=== PATIENT | female | born 1950 | race Caucasian/White ===

== ENCOUNTER → 2017-11-15 | Outpatient (CLI) | payer OTHER ==
[~2017-11-15] MED LIST: CHOL10002 PO; ESOM20; ESOM20 PO; HYDACE5 PO; LISHYD2012 PO; LOSA50; METF500 PO; METO100ER; METO100ER PO; METO50ER PO; MULVITMIND PO; OMEP20ER PO; PRED20 PO; SUMA25
== END | disposition home or self-care (01) ==
LOC: LAB EV 12:10 → LAB SHORT 12:10
DX: N39.0 Urinary tract infection, site not specified (principal)
CPT/HCPCS: 87077; 87086; 87186

== ENCOUNTER 2018-07-27 12:38 | Day surgery (SDC) | payer OTHER ==
[~2018-07-27] VITALS: Ht 157.5 cm; Wt 74.2 kg
[~2018-07-27 12:38] MED LIST changes: +B Complex #11 EACH PO; -OMEP20ER PO; +OMEPRAZOLE MAGN20 MG PO; +Toprol Xl25 MG PO
--- NOTE | 2018-07-27 15:20 | NUR ---
07/27/18 1520 Florinda Najera D 1 IV MISS IN RH BY BERHANE VEIN BLEW 1 GOOD IV IN RAC BY B[facility] PT TOW
== END 2018-07-27 17:13 | disposition home or self-care (01) ==
LOC: ORSCSDS 12:38
PROVIDERS: Student in an Organized Health Care Education/Training Program
PROC: 0DB68ZX Excision of Stomach, Via Natural or Artificial Opening Endoscopic, Diagnostic (ICD-10-PCS; principal; 2018-07-27 14:15)
PROC: 0DB58ZX Excision of Esophagus, Via Natural or Artificial Opening Endoscopic, Diagnostic (ICD-10-PCS; principal; 2018-07-27 14:15)
DX: K22.70 Barrett's esophagus without dysplasia (principal); K31.7 Polyp of stomach and duodenum; K22.2 Esophageal obstruction; K44.9 Diaphragmatic hernia without obstruction or gangrene; I10 Essential (primary) hypertension; K21.9 Gastro-esophageal reflux disease without esophagitis; E03.9 Hypothyroidism, unspecified; J45.909 Unspecified asthma, uncomplicated; Z87.891 Personal history of nicotine dependence; Z79.899 Other long term (current) drug therapy
CPT/HCPCS: 88305; J2704; J7120

== ENCOUNTER 2018-12-25 05:48 | Day surgery (SDC) | payer OTHER ==
[~2018-12-25] VITALS: Ht 154.9 cm; Wt 74.6 kg
[~2018-12-25 05:48] MED LIST changes: +ADVIL PO; -CHOL10002 PO; +Mobic15 MG PO; +Sleep Aid25 M1 PO; +VITAMIN D35000 UNIT PO
--- NOTE | 2018-12-25 06:18 | NUR ---
Ambulatory in Day Surgery History, Chart, Medications and Allergies reviewed before start of procedure.Lungs clear T/O to Auscultation. Patient confirms NPO status and agrees with scheduled surgery.
--- NOTE | 2018-12-25 10:46 | NUR ---
Discharge instructions reviewed with patient. Patient verbalizes understanding. Copy given to patient to take home. PT DENIES NEED FOR PAIN MEDICATION. DENIES NAUSEA. HAS TOLERATED WATER AND CRACKERS SLOWLY. AT BEDSIDE. STATES SHE FEELS LIKE SHE HAS TO VOID, EXPLAINED SHE HAD [place] DURING SURGERY.
== END 2018-12-25 11:49 | disposition home or self-care (01) ==
LOC: ORSCMMR 05:48 → ORD 07:30 → ORSCMMR 11:49
PROVIDERS: Surgery
PROC: 0YU54JZ Supplement Right Inguinal Region with Synthetic Substitute, Percutaneous Endoscopic Approach (ICD-10-PCS; principal; 2018-12-25 07:30)
PROC: 8E0W4CZ Robotic Assisted Procedure of Trunk Region, Percutaneous Endoscopic Approach (ICD-10-PCS; principal; 2018-12-25 07:30)
DX: K40.90 Unilateral inguinal hernia, without obstruction or gangrene, not specified as recurrent (principal); I10 Essential (primary) hypertension; K21.9 Gastro-esophageal reflux disease without esophagitis; Z79.899 Other long term (current) drug therapy
CPT/HCPCS: 49650; S2900; A9270-GY; C1781; J0690; J2250; J2370; J2704; J3010; J7120

== ENCOUNTER 2019-03-30 06:39 | Day surgery (SDC) | payer OTHER ==
[~2019-03-30] VITALS: Ht 157.5 cm; Wt 75.5 kg
--- NOTE | 2019-03-30 07:25 | NUR ---
03/30/19 0725 Krystle Rudd 1 TRY HAND R BLEW 2 TRY HAND RIGHT BLEW
== END 2019-03-30 09:04 | disposition home or self-care (01) ==
LOC: ORSCSDS 06:39
PROVIDERS: Surgery
PROC: 0DJD8ZZ Inspection of Lower Intestinal Tract, Via Natural or Artificial Opening Endoscopic (ICD-10-PCS; principal; 2019-03-30 08:00)
DX: Z12.11 Encounter for screening for malignant neoplasm of colon (principal); K57.30 Diverticulosis of large intestine without perforation or abscess without bleeding; I10 Essential (primary) hypertension; J45.909 Unspecified asthma, uncomplicated; K22.70 Barrett's esophagus without dysplasia; E03.9 Hypothyroidism, unspecified; Z79.899 Other long term (current) drug therapy
CPT/HCPCS: J2405; J2704; J7120

== ENCOUNTER → 2020-03-10 | Outpatient (CLI) | payer OTHER ==
[~2020-03-10] MED LIST changes: +ASPI325 PO; +IBUP800 PO; -LISHYD2012 PO; +PROM25 PO; +ROXICODONE5 MG PO; +ZESTORETIC 20-1 EAC3 PO
== END ==
LOC: LAB SHORT 14:57 → PLD 14:57
DX: M1A.9XX1 Chronic gout, unspecified, with tophus (tophi) (principal)
CPT/HCPCS: 88305; 89060

== ENCOUNTER → 2021-01-08 | Outpatient (CLI) | payer OTHER | END | disposition home or self-care (01) | LOC: LAB SHORT 09:50 | DX: M10.9 Gout, unspecified (principal) | CPT/HCPCS: 84550 ==

== ENCOUNTER 2022-12-24 07:30 | Day surgery (SDC) | payer OTHER ==
[2022-12-24] VITALS (15 sets, daily range): BP systolic 90–136; BP diastolic 46–95
[~2022-12-24] VITALS: Ht 154.9 cm; Wt 76.1 kg
[~2022-12-24 07:30] MED LIST changes: +ALLO100 PO; +DERMACINRX FOL1 EAC2 PO; +GABA100 PO; +IBUP400 PO; +MULTI-VITAMIN1 EAC2 PO
--- NOTE | 2022-12-24 08:23 | NUR ---
12/24/22 0823 Yoel Pearl HISTORY, CHART, MEDICATIONS AND ALLERGIES REVIEWED BEFORE START OF PROCEDURE. PATIENT CONFIRMS NPO STATUS AND AGREES WITH SCHEDULED PROCEDURE. 3-LEAD EKG REVIEWED WITH PHYSICIAN PRIOR TO START OF PROCEDURE. MONITOR INTACT WITH CONTINUOUS PULSE OXIMETRY,CAPNOGRAPHY, 3-LEAD EKG, INTERMITTENT BP. SUPPLEMENTAL O2 TO BE TITRATED THROUGHOUT PROCEDURE TO MAINTAIN O2 SATURATION ABOVE 90%. PATIENT DETERMINED TO BE ASA APPROPRIATE FOR PROPOFOL SEDATION PRIOR TO START OF PROCEDURE BY
--- NOTE | 2022-12-24 09:31 | NUR ---
Patient up to Ambulate independently. Gait steady. Discharge instructions reviewed with patient. Patient verbalizes understanding. Copy given to patient to take home. Discharged via wheelchair to private car for ride home WITH SPOUSE.
== END 2022-12-24 22:36 | disposition home or self-care (01) ==
LOC: ORSCMMR 07:30 → ORD 08:00 → ORSCMMR 22:36
PROVIDERS: Internal Medicine Gastroenterology
PROC: 0DB48ZX Excision of Esophagogastric Junction, Via Natural or Artificial Opening Endoscopic, Diagnostic (ICD-10-PCS; 2022-12-24)
PROC: 0DB68ZX Excision of Stomach, Via Natural or Artificial Opening Endoscopic, Diagnostic (ICD-10-PCS; principal; 2022-12-24 08:00)
PROC: 0DB58ZX Excision of Esophagus, Via Natural or Artificial Opening Endoscopic, Diagnostic (ICD-10-PCS; principal; 2022-12-24 08:00)
DX: K22.70 Barrett's esophagus without dysplasia (principal); K31.7 Polyp of stomach and duodenum; K44.9 Diaphragmatic hernia without obstruction or gangrene; I10 Essential (primary) hypertension; M10.9 Gout, unspecified; K21.9 Gastro-esophageal reflux disease without esophagitis; Z68.30 Body mass index [BMI] 30.0-30.9, adult; Z79.899 Other long term (current) drug therapy
CPT/HCPCS: 88305; 88342; A9270; J2704; J7120

== ENCOUNTER 2024-02-05 13:41 | Emergency (ER) | payer OTHER ==
[~2024-02-05] VITALS: Ht 154.9 cm; Wt 64.9 kg
[2024-02-05 15:18] LABS: Source, Urine Clean Catch
[2024-02-05 15:23] LABS: Appearance, Urine Clear (Clear); Bilirubin, Urine Neg (Neg); Blood, Urine Neg (Neg); Color, Urine Yellow (P-Yellow); Glucose Qualitative, Urine Neg (Neg); Ketones, Urine Neg (Neg); Leukocyte Esterase, Urine Neg (Neg); Nitrite, Urine Neg (Neg); Protein, Urine Neg (Neg); Specific Gravity, Urine 1.005 (1.003-1.022); Urobilinogen, Urine NORM (Normal)
[2024-02-05 15:33] LABS: BASOPHILS ABSOLUTE AUTO 0.08 K/mm3 (0.00-0.23); BASOPHILS PERCENT AUTO 1 % (0-2); EOSINOPHILS ABSOLUTE AUTO 0.12 K/mm3 (0.00-0.68); EOSINOPHILS PERCENT AUTO 1 % (0-6); Hematocrit 42.8 % (33.0-51.0); Hemoglobin 15.1 g/dL (11.5-16.0); IMMATURE GRAN ABSOLUTE AUTO 0.03 K/mm3 (0.00-0.10); IMMATURE GRAN PERCENT AUTO 0 % (0-1); LYMPHOCYTES ABSOLUTE AUTO 2.45 K/mm3 (0.84-5.20); LYMPHOCYTES PERCENT AUTO 28 % (21-46); MONOCYTES ABSOLUTE AUTO 0.53 K/mm3 (0.16-1.47); MONOCYTES PERCENT AUTO 6 % (4-13); Mean Corpuscular HGB Conc 35.3 g/dL (31.5-36.5); Mean Corpuscular Volume 96 fL (80-100); Mean Platelet Volume 9.5 fL (9.1-12.4); NEUTROPHILS ABSOLUTE AUTO 5.52 K/mm3 (1.96-9.15); NEUTROPHILS PERCENT AUTO 63 % (41-73); Platelet Count 273 K/mm3 (150-400); RDW Coefficient Variation 13.2 % (11.7-14.2); RDW Standard Deviation 46.5 fL (35.1-46.3); Red Blood Cell Count 4.44 M/mm3 (3.80-5.20); White Blood Cell Count 8.73 K/mm3 (4.00-11.30)
[2024-02-05 16:07] LABS: Albumin, Blood 4.3 g/dL (3.4-5.0); Albumin/Globulin Ratio 1.2 (0.8-1.8); Bilirubin, Total 0.8 mg/dL (0.1-1.0); Bun/Creatinine Ratio 21.1 (12.0-20.0); Calcium, Blood 10.3 mg/dL (8.5-10.1); Creatinine, Blood 0.76 mg/dL (0.40-1.00); Globulin, Blood 3.5 g/dL (2.2-4.0); Potassium, Blood 3.7 mmol/L (3.5-5.5); Total Protein, Blood 7.8 g/dL (6.4-8.2)
[2024-02-05 18:20] VITALS: BP 124/74
== END 2024-02-05 18:27 | disposition home or self-care (01) ==
LOC: ER 13:41
PROVIDERS: Student in an Organized Health Care Education/Training Program
DX: K57.30 Diverticulosis of large intestine without perforation or abscess without bleeding (principal); N20.0 Calculus of kidney; J45.909 Unspecified asthma, uncomplicated; I10 Essential (primary) hypertension; Z79.899 Other long term (current) drug therapy; Z88.2 Allergy status to sulfonamides; Z88.1 Allergy status to other antibiotic agents; Z88.6 Allergy status to analgesic agent; Z88.5 Allergy status to narcotic agent
CPT/HCPCS: 74177; 80053; 81003; 83690; 85025; 93005; 93010; 99284-25; Q9967

== ENCOUNTER 2024-07-28 08:47 | Day surgery (SDC) | payer OTHER ==
[2024-07-28] VITALS (18 sets, daily range): BP systolic 114–155; BP diastolic 55–143
[~2024-07-28] VITALS: Ht 154.9 cm; Wt 66.8 kg
[~2024-07-28 08:47] MED LIST changes: +Acetaminophen 500 MG Tab PO SCH; +CYCL10 PO; +CeFAZolin Sodium 2,000 MG in NS 100 ML IV SCH; +Chlorhexidine Mouth Care 15 ML UDC MT SCH; +Crestor40 MG PO; +Lactated Ringer's 1,000 ML IV SCH; +MELO7.5 PO; +OxyCODONE HCL 10 MG TABCR PO SCH; +Tranexamic Acid 100 ML IV SCH; +Vancomycin HCL 1,000 MG in NS 250 ML IV SCH
[2024-07-28] MEDS ORDERED: Ropivacaine 0.5% HCl/Pf 123.125 MG,EPINEPHrine HCL 0.25 MG,Ketorolac Tromethamine 15 MG... INFIL SCH (09:15)
[2024-07-28] MEDS ORDERED: HYDROmorphone HCl/Pf 1MG SYR IV PRN ×3 (09:30→10:50)
[2024-07-28] MEDS ORDERED: FentaNYL Citrate 50 MCG/ML 2 ML Injection IV PRN ×2 (09:30)
[2024-07-28] MEDS ORDERED: Ondansetron HCl 2 MG / ML 2ML Vial IV PRN ×2 (09:30→10:50)
[2024-07-28] MEDS ORDERED: Metoclopramide HCl 5MG / ML 2ML Vial IV PRN ×2 (09:35→10:50)
[2024-07-28] MEDS ORDERED: Labetalol HCL 5 MG/ML 20MLVIAL IV PRN (09:35)
[2024-07-28] MEDS ORDERED: Bisacodyl 10 MG Supp PR PRN (10:40)
[2024-07-28] MEDS ORDERED: DiphenhydrAMINE HCl 50 MG/ML 1ML Vial ONE (10:44)
[2024-07-28] MEDS ORDERED: DiphenhydrAMINE HCL 25 MG Cap PO PRN (10:45)
[2024-07-28] MEDS ORDERED: Prochlorperazine Edisylate 10 mg Vial IV PRN (10:45)
[2024-07-28] MEDS ORDERED: OxyCODONE HCL 5 MG TAB PO PRN ×2 (10:45)
[2024-07-28] MEDS ORDERED: DiphenhydrAMINE HCl 50 MG/ML 1ML Vial IV ONE (10:45)
[2024-07-28] MEDS ORDERED: HYDROmorphone HCl/Pf 1MG SYR ONE (10:46)
[2024-07-28] MEDS ORDERED: Ondansetron HCl 2 MG / ML 2ML Vial ONE (10:46)
[2024-07-28] MEDS ORDERED: Metoclopramide HCl 5MG / ML 2ML Vial ONE (10:46)
[2024-07-28] MEDS ORDERED: propofoL 20 ML IV ONE (10:46)
[2024-07-28] MEDS ORDERED: Magnesium Sulfate 500 MG / ML 2ML Vial ONE (10:47)
[2024-07-28] MEDS ORDERED: Rocuronium Bromide 10 MG/ML 5ML Injection IV ONE (10:48)
[2024-07-28] MEDS ORDERED: Lidocaine HCl 2% 20 ML MDV ONE (10:48)
[2024-07-28] MEDS ORDERED: Magnesium Hydroxide Conc 10 ML UDC PO PRN (10:50)
[2024-07-28] MEDS ORDERED: Promethazine HCl 25 MG Tab PO PRN (10:50)
[2024-07-28] MEDS ORDERED: Cyclobenzaprine HCl 10 MG Tab PO PRN (10:55)
[2024-07-28] MEDS ORDERED: Lactated Ringer's 1,000 ML IV SCH (11:00)
--- NOTE | 2024-07-28 11:04 | NUR ---
PREPROCEDURE, PT STATED ITCHING SCALP, NO BREATHING DIFFICULTY, AIRWAY CLEAR, LUNGS CLEAR BILATERALLY, NO FACIAL FLUSHING NOTED. DR. PEREZ MADE AWARE AND HE ORDERED TO SLOW THE RATE OF VANCO DOWN FROM 250ML/HOUR TO 150ML/HOUR AND TO ADMINISTER 12.5MG BENADRYL IV PUSH. CONTINUED TO MONITOR UNTIL PT WENT TO OR. CIRCULATING NURSE MADE AWARE. PT VITAL SIGNS CONTINUED TO STAY STABLE, ITCHING SCALP REMAINED LOCAL TO SCALP AND BEGAN DO DISSIPATE IN MY CARE.
[2024-07-28] MEDS ORDERED: Sugammadex Sodium 200 MG/2ML SDV (100 MG/ML) ONE (12:38)
[2024-07-28] MEDS ORDERED: FentaNYL Citrate 50 MCG/ML 2 ML Injection ONE (13:28)
--- NOTE | 2024-07-28 14:09 | NUR ---
ADMIT PT TO UNIT @1400. VSS. POSTERIOR HIP PREAUTIONS IN PLACE. PT STILL LETHARGIC AT THIS TIME. SPOUSE AT BEDSIDE.
[2024-07-28] MEDS ORDERED: Acetaminophen 500 MG Tab PO SCH (16:00)
--- NOTE | 2024-07-28 18:07 | NUR ---
SHIFT SUMMARY PT TO UNIT @1400. LETHARGIC, HASSINCE BECOME FULLY AXO4. HAS AMBULATED TO B[facility] WELL W/O COMPLICATION. VERBAL CUES NEEDED, PT DID WELL WITH THIS, FOLLOWED POSTERIOR HIP PRECAUTIONS WELL. THREE DRESSINGS CDI. PAIN MINIMAL PER PT REPORT. NAUSEA PERSISTS, MED PER EMAR. SPOUSE AT BEDSIDE SINCE PACU DC. PT USING CALL LIGHT APPROPRIATELY.
[2024-07-28] MEDS ORDERED: Allopurinol 100 MG Tab PO SCH (21:00)
[2024-07-28] MEDS ORDERED: Docusate Sodium 100 MG Cap PO SCH (21:00)
[2024-07-28] MEDS ORDERED: Vancomycin HCL 1,000 MG in NS 250 ML IV SCH (22:00)
[2024-07-28] MEDS ORDERED: CeFAZolin Sodium 2,000 MG in NS 100 ML IV SCH (22:50)
[2024-07-29 03:20] VITALS: BP 121/59
[2024-07-29] MEDS ORDERED: Omeprazole 20 MG CapCR PO SCH (06:00)
[2024-07-29 06:12] LABS: BASOPHILS ABSOLUTE AUTO 0.04 K/mm3 (0.00-0.23); BASOPHILS PERCENT AUTO 0 % (0-2); EOSINOPHILS ABSOLUTE AUTO 0.02 K/mm3 (0.00-0.68); EOSINOPHILS PERCENT AUTO 0 % (0-6); Hematocrit 33.9 % (33.0-51.0); Hemoglobin 11.8 g/dL (11.5-16.0); IMMATURE GRAN ABSOLUTE AUTO 0.04 K/mm3 (0.00-0.10); IMMATURE GRAN PERCENT AUTO 0 % (0-1); LYMPHOCYTES ABSOLUTE AUTO 1.55 K/mm3 (0.84-5.20); LYMPHOCYTES PERCENT AUTO 14 % (21-46); MONOCYTES ABSOLUTE AUTO 1.27 K/mm3 (0.16-1.47); MONOCYTES PERCENT AUTO 12 % (4-13); Mean Corpuscular HGB 34.4 pg (26.0-34.0); Mean Corpuscular HGB Conc 34.8 g/dL (31.5-36.5); Mean Corpuscular Volume 99 fL (80-100); Mean Platelet Volume 9.9 fL (9.1-12.4); NEUTROPHILS ABSOLUTE AUTO 7.82 K/mm3 (1.96-9.15); NEUTROPHILS PERCENT AUTO 73 % (41-73); Platelet Count 212 K/mm3 (150-400); RDW Coefficient Variation 12.9 % (11.7-14.2); Red Blood Cell Count 3.43 M/mm3 (3.80-5.20); White Blood Cell Count 10.74 K/mm3 (4.00-11.30)
[2024-07-29 06:43] LABS: Bun/Creatinine Ratio 21.5 (12.0-20.0); Calcium, Blood 8.8 mg/dL (8.5-10.1); Creatinine, Blood 0.89 mg/dL (0.40-1.00); Potassium, Blood 3.9 mmol/L (3.5-5.5)
[2024-07-29 07:41] VITALS: BP 117/61
[2024-07-29] MEDS ORDERED: Aspirin 81 MG Chew PO SCH (09:00)
[2024-07-29] MEDS ORDERED: Vitamin B Complex 1 EA Softgel PO SCH (09:00)
[2024-07-29] MEDS ORDERED: HydroCHLOROthiazide 25 mg Tab PO SCH (09:00)
[2024-07-29] MEDS ORDERED: Lisinopril 20 MG Tab PO SCH (09:00)
[2024-07-29] MEDS ORDERED: Linezolid 600 MG Tab PO SCH (09:00)
[2024-07-29] MEDS ORDERED: Metoprolol Succinate 25 MG TABCR PO SCH (09:00)
[2024-07-29] MEDS ORDERED: HYDROcodone 5-APAP 325 TAB PO PRN (09:10)
--- NOTE | 2024-07-29 12:05 | NUR ---
DC INSTRUCT REVIEWED. IV DC'D INTACT. DC'D TO POV WITH PRINTED INSTRUCT.
[2024-07-30] MEDS ORDERED: Gabapentin 100 MG Cap PO SCH (09:00)
== END 2024-07-29 12:06 | disposition home or self-care (01) ==
LOC: ORD 08:47 → ORSCMMR 08:47 → ORD 09:22 → ORSCMMR 13:54 → SURS 13:54 → ORD 07-29 12:06 → ORSCMMR 07-29 12:06 → SURS 07-29 12:06
PROVIDERS: Orthopaedic Surgery
PROC: 0SRB0JA Replacement of Left Hip Joint with Synthetic Substitute, Uncemented, Open Approach (ICD-10-PCS; principal; 2024-07-28 11:00)
DX: M16.12 Unilateral primary osteoarthritis, left hip (principal); I10 Essential (primary) hypertension; J45.909 Unspecified asthma, uncomplicated; K21.9 Gastro-esophageal reflux disease without esophagitis; Z79.899 Other long term (current) drug therapy; E03.9 Hypothyroidism, unspecified; E78.00 Pure hypercholesterolemia, unspecified
CPT/HCPCS: 36415; 72170; 80048; 83735; 85025; 94760; 97110; 97116; 97162; 97165; 97535; A9270; C1713; C1776; J0171; J0690; J0735; J1171; J1200; J1885; J2405; J2704; J2765; J2795; J3010; J3370; J3475; J7050; J7120